=== PATIENT | female | born 2000 | race American Indian/Alaskan Native ===

== ENCOUNTER 2020-05-13 07:23 | Emergency (ER) | payer MEDICAID ==
--- NOTE | 2020-05-13 07:36 | Emergency Department Report ---
ED N/V/D HPI - General Chief complaint: Abdominal Pain Stated complaint: WEAK/2DAYS VOMIT Time Seen by Provider: 05/13/20 07:31 Source: patient Mode of arrival: Ambulatory Limitations: No Limitations - History of Present Illness Initial comments: 20-year-old -[place] female presents to the emergency room for abdominal pain, nausea vomiting body aches headaches x2 days. Patient states that she has been dealing with this intermittently for over a year. Patient reports that she has multiple ER visits for the same complaints. Patient states that she has an appointment for a GI specialist. She reports her last menstrual period was 05/08/2020. Most of her pains at the epigastric and periumbilical's. She does report urinary frequency and urinary incontinence as well as urgency. MD complaint: nausea, vomiting Onset/Timin - Related Data Previous Rx's Medication Instructions Recorded Last Taken Type Ciprofloxacin HCl [Ciprofloxacin 500 mg PO Q12HR #20 tab 11/12/19 Unknown Rx TAB] Phenazopyridine [Pyridium] 200 mg PO TID #9 tab 11/12/19 Unknown Rx Famotidine [Pepcid] 20 mg PO BID 10 Days #20 tablet 05/13/20 Unknown Rx Ondansetron [Zofran ODT TAB] 4 mg PO Q8HR #20 tab.rapdis 05/13/20 Unknown Rx Allergies Allergy/AdvReac Type Severity Reaction Status Date / Time Penicillins Allergy Rash Verified 05/13/20 09:27 ED Review of Systems ROS: Stated complaint: WEAK/2DAYS VOMIT Other details as noted in HPI Comment: All other systems reviewed and negative Constitutional: denies: chills, fever Gastrointestinal: abdominal pain, nausea, vomiting. denies: diarrhea, constip ation Genitourinary: urgency, frequency. denies: dysuria, discharge Musculoskeletal: back pain ED Past Medical Hx - Past Medical History Previous Medical History?: Yes Hx Psychiatric Treatment: Yes (depression, anxiety, bipolar) Hx Asthma: Yes - Surgical History Past Surgical History?: Yes Additional Surgical History: D&C - Social History Smoking Status: Never Smoker Substance Use Type: None - Medications Home Medications: Home Medications Medication Instructions Recorded Confirmed Last Taken Type Ciprofloxacin HCl [Ciprofloxacin 500 mg PO Q12HR #20 tab 11/12/19 Unknown Rx TAB] Phenazopyridine [Pyridium] 200 mg PO TID #9 tab 11/12/19 Unknown Rx Famotidine [Pepcid] 20 mg PO BID 10 Days #20 tablet 05/13/20 Unknown Rx Ondansetron [Zofran ODT TAB] 4 mg PO Q8HR #20 tab.rapdis 05/13/20 Unknown Rx ED Physical Exam - General Limitations: No Limitations General appearance: alert, in distress - Head Head exam: Present: atraumatic, normocephalic - Eye Eye exam: Present: normal appearance - ENT ENT exam: Present: mucous membranes dry - Neck Neck exam: Present: normal inspection, full ROM - Respiratory Respiratory exam: Present: normal lung sounds bilaterally. Absent: respiratory distress, accessory muscle use - Cardiovascular Cardiovascular Exam: Present: tachycardia - GI/Abdominal GI/Abdominal exam: Present: soft, tenderness, guarding - Extremities Exam Extremities exam: Present: normal inspection, full ROM - Back Exam Back exam: Present: normal inspection, full ROM - Neurological Exam Neurological exam: Present: alert, oriented X3, normal gait - Psychiatric Psychiatric exam: Present: normal affect, normal mood - Skin Skin exam: Present: warm, dry, intact, normal color. Absent: rash ED Course Vital Signs 05/13/20 05/13/20 05/13/20 07:35 08:40 08:46 Temperature 97.9 F Pulse Rate 120 H 83 Respiratory 16 16 20 Rate Blood Pressure 117/71 Blood Pressure 120/73 [Right] O2 Sat by Pulse 97 98 97 Oximetry 05/13/20 05/13/20 05/13/20 09:00 09:15 09:30 Temperature Pulse Rate 78 102 H 82 Respiratory 18 19 17 Rate Blood Pressure 117/71 118/71 118/71 Blood Pressure [Right] O2 Sat by Pulse 96 99 Oximetry 05/13/20 05/13/20 05/13/20 09:46 10:00 10:15 Temperature Pulse Rate 67 106 H 94 H Respiratory 18 20 21 Rate Blood Pressure 118/71 118/71 126/75 Blood Pressure [Right] O2 Sat by Pulse 99 96 97 Oximetry - Reevaluation(s) Reevaluation #1: 05/13/20 10:00 Patient reports she feels much better. We will give one more liter of fluids and discharge. ED Medical Decision Making - Lab Data Result diagrams: 05/13/20 08:08 05/13/20 08:08 - Medical Decision Making 20-year-old -[place] female presents to the emergency room for abdominal pain, nausea vomiting body aches headaches x2 days. Patient states that she has been dealing with this intermittently for over a year. Patient reports that she has multiple ER visits for the same complaints. Patient states that she has an appointment for a GI specialist. She reports her last menstrual period was 05/08/2020. Most of her pains at the epigastric and periumbilical's. She does report urinary frequency and urinary incontinence as well as urgency. Labs urine IV fluids IV Pepcid IV Zofran IV normal saline. Labs show that patient is dehydrated. Patient has had 2 L of normal saline Pepcid and Zofran. She reports she feels much better. Patient will be discharged home on Zofran Pepcid. Encouraged to follow-up with a primary care provider as well as a gravity meter observer. Critical care attestation.: If time is entered above; I have spent that time in minutes in the direct care of this critically ill patient, excluding procedure time. ED Disposition Clinical Impression: Dehydration symptoms, Chronic generalized abdominal pain, Nausea & vomiting Disposition: DC-01 TO HOME OR SELFCARE Is pt being admited?: No Does the pt Need Aspirin: No Condition: Stable Instructions: Abdominal Pain (ED) Additional Instructions: Please take medications as prescribed. Is very important for you to increase your fluid intake advance her diet as tolerated. Also you must follow-up with a gravity meter observer. Prescriptions: Famotidine [Pepcid] 20 mg PO BID 10 Days #20 tablet Ondansetron [Zofran ODT TAB] 4 mg PO Q8HR #20 tab.rapdis Referrals: PRIMARY MD EJ [Primary Care Provider] - 3-5 Days [facility] [Provider Group] - 3-5 Days DARELL MCKENNA MD [Staff Physician] - 3-5 Days Forms: Work/School Release Form(ED)
[2020-05-13] MEDS ORDERED: ONDANSETRON 4 MG/2 ML INJ IV ONE (07:44)
[2020-05-13] MEDS ORDERED: SODIUM CHLORIDE 0.9% 1000 ML 1,000 ML IV ONE ×2 (07:44→09:06)
[2020-05-13] MEDS ORDERED: FAMOTIDINE 20 MG/2 ML INJ IV ONE (07:44)
[2020-05-13 08:22] LABS: Bilirubin,Urine NEG (Negative); Blood,Urine MOD (Negative); Color,Urine Yellow (Yellow); Hyaline Casts,Urine 2 /LPF; Mucus,Urine 3+ /HPF; Urobilinogen,Urine < 2.0 mg/dL (<2.0)
[2020-05-13 08:24] LABS: Basophils # (Auto) 0.1 K/mm3 (0.0-0.1); Basophils % (Auto) 0.6 % (0.0-1.8); Hematocrit 40.1 % (30.3-42.9); Hemoglobin 13.3 gm/dl (10.1-14.3); Lymphocytes # (Auto) 0.8 K/mm3 (1.2-5.4); Lymphocytes % (Auto) 7.4 % (13.4-35.0); Mean Corpuscular HGB Conc 33 % (30-34); Mean Corpuscular Volume 77 fl (79-97); Monocytes # (Auto) 0.3 K/mm3 (0.0-0.8); Monocytes % (Auto) 2.8 % (0.0-7.3); Platelet Count 331 K/mm3 (140-440); Red Blood Count 5.21 M/mm3 (3.65-5.03); Red Cell Distribution Width 13.8 % (13.2-15.2)
[2020-05-13 08:27] LABS: Protein,Urine >500 mg/dL (Negative)
[2020-05-13 08:30] LABS: HCG Qualitative,Urine Negative (Negative)
[2020-05-13 08:41] LABS: Alanine Aminotransferase 7 units/L (7-56); Albumin 5.4 g/dL (3.9-5); Blood Urea Nitrogen 17 mg/dL (7-17); Calcium 10.4 mg/dL (8.4-10.2); Hemolysis Index 1
[2020-05-13 08:44] LABS: BUN/Creatinine Ratio 28
[2020-05-13 13:13] VITALS: BP 118/71
== END 2020-05-13 12:20 | disposition home or self-care (01) ==
LOC: ED 07:23
DX: R10.84 Generalized abdominal pain (principal); R11.2 Nausea with vomiting, unspecified; E86.0 Dehydration; F32.9 Major depressive disorder, single episode, unspecified; F41.9 Anxiety disorder, unspecified; J45.909 Unspecified asthma, uncomplicated; Z98.890 Other specified postprocedural states; Z79.2 Long term (current) use of antibiotics; Z79.899 Other long term (current) drug therapy; Z88.0 Allergy status to penicillin
CPT/HCPCS: 36415; 80053; 81001; 81025; 83690; 83735; 84702; 85025; 87086; 96361; 96374; 96375; 99283; J2405; J7030

== ENCOUNTER 2020-07-01 02:03 | Emergency (ER) | payer MEDICAID, MEDICARE ==
[2020-07-01] MEDS ORDERED: diphenhydrAMINE 50 MG/ML VIAL IV ONE (05:52)
[2020-07-01] MEDS ORDERED: METOCLOPRAMIDE 10 MG/2 ML INJ IV ONE (05:52)
[2020-07-01] MEDS ORDERED: SODIUM CHLORIDE 0.9% 1000 ML 1,000 ML IV ONE (05:52)
[2020-07-01 06:02] LABS: Basophils % (Auto) 0.3 % (0.0-1.8); Hematocrit 38.9 % (30.3-42.9); Hemoglobin 13.4 gm/dl (10.1-14.3); Lymphocytes # (Auto) 1.2 K/mm3 (1.2-5.4); Lymphocytes % (Auto) 12.4 % (13.4-35.0); Mean Corpuscular HGB Conc 34 % (30-34); Mean Corpuscular Volume 78 fl (79-97); Monocytes # (Auto) 0.3 K/mm3 (0.0-0.8); Monocytes % (Auto) 2.9 % (0.0-7.3); Platelet Count 240 K/mm3 (140-440); Red Blood Count 4.99 M/mm3 (3.65-5.03); Red Cell Distribution Width 14.3 % (13.2-15.2)
[2020-07-01 06:18] LABS: Alanine Aminotransferase 6 units/L (7-56); Albumin 5.4 g/dL (3.9-5); Blood Urea Nitrogen 13 mg/dL (7-17); Calcium 9.9 mg/dL (8.4-10.2); Hemolysis Index 6
[2020-07-01 06:26] LABS: BUN/Creatinine Ratio 19
--- NOTE | 2020-07-01 07:34 | XRay Report ---
CHEST 1 VIEW INDICATION: sob asthma COMPARISON: None FINDINGS: Support devices: None Heart: Normal Lungs/Pleura: No acute pulmonary or pleural findings. IMPRESSION: 1. No acute disease. Signer Name: Garett Laura MD Signed: 07/01/2020 7:29 AM Workstation Name: [id number]
[2020-07-01 08:27] LABS: Amorphous Crystals,Urine Few; Bilirubin,Urine NEG (Negative); Blood,Urine NEG (Negative); Color,Urine Yellow (Yellow); Mucus,Urine 3+ /HPF
[2020-07-01 08:28] LABS: HCG Qualitative,Urine Negative (Negative)
--- NOTE | 2020-07-01 08:29 | Emergency Department Report ---
ED N/V/D HPI - General Stated complaint: VOMITING, CHILLS,SHAKES, SEWATS PUI?: No Time Seen by Provider: 07/01/20 04:45 Source: patient Mode of arrival: Ambulatory Limitations: No Limitations - History of Present Illness Initial comments: Patient is a pleasant 20-year-old -[place] female that comes to the emergency room today with nausea vomiting and diarrhea. She states she is currently on her menses. She denies any abnormal vaginal discharge. She states that for 2 days she has had the nausea vomiting and diarrhea. She states that this seems to be cyclically and related to her menses. She has seen doctors in the past for but they never been able to give her a diagnosis or etiology of the problem. She has had an ovarian cyst in the past that was a simple cyst without consequence. Patient is ambulatory nontoxic [id number] on exam in ACC. MD complaint: nausea, vomiting, diarrhea -: Gradual, days(s) Description of Diarrhea: water Associated Abdominal Pain: No Improves with: none Worsens with: none, other Associated Symptoms: denies other symptoms - Related Data Previous Rx's Medication Instructions Recorded Last Taken Type Ciprofloxacin HCl [Ciprofloxacin 500 mg PO Q12HR #20 tab 11/12/19 Unknown Rx TAB] Phenazopyridine [Pyridium] 200 mg PO TID #9 tab 11/12/19 Unknown Rx Famotidine [Pepcid] 20 mg PO BID 10 Days #20 tablet 05/13/20 Unknown Rx Ondansetron [Zofran ODT TAB] 4 mg PO Q8HR #20 tab.rapdis 05/13/20 Unknown Rx Ondansetron [Zofran Odt] 4 mg PO Q8HR PRN #10 tab.rapdis 07/01/20 Unknown Rx Allergies Allergy/AdvReac Type Severity Reaction Status Date / Time Penicillins Allergy Rash Verified 05/13/20 09:27 ED Review of Systems ROS: Stated complaint: VOMITING, CHILLS,SHAKES, SEWATS Other details as noted in HPI Comment: All other systems reviewed and negative ED Past Medical Hx - Past Medical History Previous Medical History?: Yes Hx Psychiatric Treatment: Yes (depression, anxiety, bipolar) Hx Asthma: Yes Additional medical history: Ovarian cyst - Surgical History Past Surgical History?: Yes Additional Surgical History: D&C - Family History Family history: no significant - Social History Smoking Status: Never Smoker Substance Use Type: None - Medications Home Medications: Home Medications Medication Instructions Recorded Confirmed Last Taken Type Ciprofloxacin HCl [Ciprofloxacin 500 mg PO Q12HR #20 tab 11/12/19 Unknown Rx TAB] Phenazopyridine [Pyridium] 200 mg PO TID #9 tab 11/12/19 Unknown Rx Famotidine [Pepcid] 20 mg PO BID 10 Days #20 tablet 05/13/20 Unknown Rx Ondansetron [Zofran ODT TAB] 4 mg PO Q8HR #20 tab.rapdis 05/13/20 Unknown Rx Ondansetron [Zofran Odt] 4 mg PO Q8HR PRN #10 tab.rapdis 07/01/20 Unknown Rx ED Physical Exam - General General appearance: alert, in no apparent distress - Head Head exam: Present: atraumatic, normocephalic - Eye Eye exam: Present: normal appearance - ENT ENT exam: Present: mucous membranes moist - Neck Neck exam: Present: normal inspection - Respiratory Respiratory exam: Present: normal lung sounds bilaterally. Absent: respiratory distress - Cardiovascular Cardiovascular Exam: Present: regular rate, normal rhythm. Absent: systolic murmur, diastolic murmur, rubs, gallop - GI/Abdominal GI/Abdominal exam: Present: soft, normal bowel sounds - Extremities Exam Extremities exam: Present: normal inspection - Back Exam Back exam: Present: normal inspection - Neurological Exam Neurological exam: Present: alert, oriented X3 - Psychiatric Psychiatric exam: Present: normal affect, normal mood - Skin Skin exam: Present: warm, dry, intact, normal color. Absent: rash ED Medical Decision Making - Lab Data Result diagrams: 07/01/20 05:32 07/01/20 05:32 - Radiology Data Radiology results: report reviewed, image reviewed - Medical Decision Making Labs 07/01/20 07/01/20 07/01/20 05:32 05:32 08:06 WBC 10.0 RBC 4.99 Hgb 13.4 Hct 38.9 MCV 78 L MCH 27 L MCHC 34 RDW 14.3 Plt Count 240 Lymph % (Auto) 12.4 L [place] % (Auto) 2.9 Eos % (Auto) 0.0 Baso % (Auto) 0.3 Lymph # (Auto) 1.2 [place] # (Auto) 0.3 Eos # (Auto) 0.0 Baso # (Auto) 0.0 Seg Neutrophils % 84.4 H Seg Neutrophils # 8.4 H Sodium 142 Potassium 3.9 Chloride 103.6 Carbon Dioxide 24 Anion Gap 18 BUN 13 Creatinine 0.7 Estimated GFR > 60 BUN/Creatinine Ratio 19 Glucose 140 H Calcium 9.9 Total Bilirubin 0.70 AST 20 ALT 6 L Alkaline Phosphatase 63 Total Protein 8.6 H Albumin 5.4 H Albumin/Globulin Ratio 1.7 Lipase 16 Urine Color Yellow Urine Turbidity Cloudy Urine pH 5.0 Ur Specific [place] 1.028 Urine Protein 30 mg/dl Urine Glucose (UA) Neg Urine Ketones 20 Urine Blood Neg Urine Nitrite Neg Urine Bilirubin Neg Urine Urobilinogen 2.0 Ur Leukocyte Esterase Neg Urine WBC (Auto) 3.0 Urine RBC (Auto) 1.0 U Epithel Cells (Auto) 7.0 Amorphous Crystals Few Urine Mucus 3+ Urine HCG, Qual Negative At the time of ACC exam patient had been in the ER for about 4 hours and has had no further nausea vomiting and diarrhea. She was medicated body overnight a PPD. Vital signs are normal as documented manually by the nurse On reexam patient is ambulatory nontoxic and [id number]. She is taking p.o. Her abdomen is soft nontender. She has no CVA tenderness. She has no dysuria. She is not concerned for STI and has no vaginal discharge. UA is negative for or infection. Patient did have 20 ketones. She is taking p.o. Labs noted. Patient denies eating any bad food. She denies being around anybody that is been ill. She has no right upper quadrant tenderness. Patient being discharged home with discharge plan of care including a bland diet today. She is been given Zofran as needed. I have also given her referral to local PCP, GI doctor and MARKETING PROFESSIONAL for follow-up should she need it. Patient verbalizes understanding of discharge plan of care - Differential Diagnosis RO PREG/UTI/GASTROENTERITIS Critical care attestation.: If time is entered above; I have spent that time in minutes in the direct care of this critically ill patient, excluding procedure time. ED Disposition Clinical Impression: Gastroenteritis Disposition: DC-01 TO HOME OR SELFCARE Is pt being admited?: No Does the pt Need Aspirin: No Condition: Stable Additional Instructions: BLAND DIET TODAY ADVANCE TOLERATED ZOFRAN FOR NAUSEA DRINK A LOT OF WATER REFERRALS BELOW WE DISCUSSED Prescriptions: Ondansetron [Zofran Odt] 4 mg PO Q8HR PRN #10 tab.rapdis PRN Reason: Vomiting Referrals: DARELL MCKENNA MD [Staff Physician] - 3-5 Days JOESPH HURLEY MD [Staff Physician] - 3-5 Days ANAMARIA JERONIMO MD [Staff Physician] - 3-5 Days Time of Disposition: 08:33
[2020-07-01 09:07] VITALS: BP 112/82
== END 2020-07-01 09:07 | disposition home or self-care (01) ==
LOC: ED 02:03
DX: K52.9 Noninfective gastroenteritis and colitis, unspecified (principal); F32.9 Major depressive disorder, single episode, unspecified; F41.9 Anxiety disorder, unspecified; Z98.890 Other specified postprocedural states; Z79.2 Long term (current) use of antibiotics; Z79.899 Other long term (current) drug therapy; Z88.0 Allergy status to penicillin
CPT/HCPCS: 36415; 71045; 80053; 81001; 81025; 83690; 85025; 96361; 96374; 96375; 99284; J1200; J2765; J7030

== ENCOUNTER 2020-07-03 02:07 | Emergency (ER) | payer MEDICAID, MEDICARE ==
--- NOTE | 2020-07-03 06:21 | Event Note ---
ED Screening Note Date of service: 07/03/20 Time: 06:17 ED Screening Note: 20-year-old -[place] female who I have had the pleasure of seeing back in May presents to the emergency room for nausea vomiting and abdominal pain. Patient reports that she was seen here on the for the same complaint. Patient reports that she she has an appointment with her [facility]IC[facility]OG[facility] today. She reports that she started her menstrual period on 07/01/2020. She states that the Zofran that was prescribed to her does not help. She last vomited about an hour ago. Patient points to her left lower quadrant where her pain is. Patient has been seen here several times without any imaging. I will order a CT with contrast for abdominal and pelvic pain and tenderness. Patient was examined by me and has left lower quadrant tenderness. This initial assessment/diagnostic orders/clinical plan/treatment(s) is/are subject to change based on patients health status, clinical progression and re- assessment by fellow clinical providers in the ED. Further treatment and workup at subsequent clinical providers discretion. Patient/guardian urged not to elope from the ED as their condition may be serious if not clinically assessed and managed. Initial orders include:
[2020-07-03 06:23] VITALS: BP 117/86
[2020-07-03 07:00] LABS: Bilirubin,Urine NEG (Negative); Blood,Urine LG (Negative); Color,Urine Yellow (Yellow); HCG Qualitative,Urine Negative (Negative); Mucus,Urine 3+ /HPF
--- NOTE | 2020-07-03 08:29 | Cat Scan Report ---
CT ABDOMEN AND PELVIS WITH CONTRAST HISTORY: MAIN. Left lower quadrant pain COMPARISON: None. TECHNIQUE: CT images of the abdomen and pelvis were obtained following administration of intravenous contrast. All CT scans at this location are performed using CT dose reduction for ALARA by means of automated exposure control. CONTRAST: 100 ml of intravenous contrast administered. FINDINGS: Lungs/bones: Lung bases are clear Abdomen/pelvis: The liver, spleen, adrenal glands, pancreas, gallbladder and upper GI tract appear n ormal. Bilateral kidneys appear normal. There is fluid within the endometrium. No significant free fl uid is seen in the pelvis. No acute bone findings are seen.. Appendix is not definitely seen. No infl ammatory changes seen within the colon. No evidence for bowel obstruction. IMPRESSION: No acute findings are seen. No focal inflammatory change is identified. Signer Name: Lonnie Ann MD Signed: 07/03/2020 8:25 AM Workstation Name: [id number]
[2020-07-03] MEDS ORDERED: KETOROLAC 30 MG/1 ML INJ IV STA (09:12)
[2020-07-03] MEDS ORDERED: ONDANSETRON 4 MG/2 ML INJ IV STA (09:12)
--- NOTE | 2020-07-03 09:32 | Emergency Department Report ---
ED Abdominal Pain HPI - General Chief Complaint: Abdominal Pain Stated Complaint: VOMITING Time Seen by Provider: 07/03/20 09:09 Source: patient Mode of arrival: Ambulatory Limitations: No Limitations - History of Present Illness Initial Comments: 20-year-old -Niuean female presents emerged department complaining of a several week history of abdominal pain which she has been having it evaluated [place] No urgent or emergent conditions have have been discovered despite several CT scans and ultrasounds although she continues to have pain to the left lower quadrant and radiates through to her left flank and suprapubic region. She reports no vaginal bleeding, no vaginal discharge, no hematuria, wound, no no dysuria, no fever, chills, sweats. MD Complaint: abdominal pain -: week(s) Location: LLQ, suprapubic Radiation: none Migration to: no migration Severity scale (0 -10): 0 Consistency: constant Improves With: nothing Associated Symptoms: nausea, vomiting. denies: chills, constipation, dysuria, melena, hematuria, anorexia - Related Data Previous Rx's Medication Instructions Recorded Last Taken Type Ciprofloxacin HCl [Ciprofloxacin 500 mg PO Q12HR #20 tab 11/12/19 Unknown Rx TAB] Phenazopyridine [Pyridium] 200 mg PO TID #9 tab 11/12/19 Unknown Rx Famotidine [Pepcid] 20 mg PO BID 10 Days #20 tablet 05/13/20 Unknown Rx Ondansetron [Zofran ODT TAB] 4 mg PO Q8HR #20 tab.rapdis 05/13/20 Unknown Rx Ondansetron [Zofran Odt] 4 mg PO Q8HR PRN #10 tab.rapdis 07/01/20 Unknown Rx Hyoscyamine Subl [Levsin Sl 0.125 0.125 mg SL Q6HR PRN #20 tab 07/03/20 Unknown Rx TAB] Ondansetron [Zofran ODT TAB] 8 mg PO Q12HR #14 tab.rapdis 07/03/20 Unknown Rx Allergies Allergy/AdvReac Type Severity Reaction Status Date / Time Penicillins Allergy Rash Verified 05/13/20 09:27 ED Review of Systems ROS: Stated complaint: VOMITING Other details as noted in HPI Comment: All other systems reviewed and negative ED Past Medical Hx - Past Medical History Previous Medical History?: Yes Hx Psychiatric Treatment: Yes (depression, anxiety, bipolar) Hx Asthma: Yes Additional medical history: Ovarian cyst - Surgical History Past Surgical History?: Yes Additional Surgical History: D&C - Social History Smoking Status: Never Smoker Substance Use Type: None - Medications Home Medications: Home Medications Medication Instructions Recorded Confirmed Last Taken Type Ciprofloxacin HCl [Ciprofloxacin 500 mg PO Q12HR #20 tab 11/12/19 Unknown Rx TAB] Phenazopyridine [Pyridium] 200 mg PO TID #9 tab 11/12/19 Unknown Rx Famotidine [Pepcid] 20 mg PO BID 10 Days #20 tablet 05/13/20 Unknown Rx Ondansetron [Zofran ODT TAB] 4 mg PO Q8HR #20 tab.rapdis 05/13/20 Unknown Rx Ondansetron [Zofran Odt] 4 mg PO Q8HR PRN #10 tab.rapdis 07/01/20 Unknown Rx Hyoscyamine Subl [Levsin Sl 0.125 0.125 mg SL Q6HR PRN #20 tab 07/03/20 Unknown Rx TAB] Ondansetron [Zofran ODT TAB] 8 mg PO Q12HR #14 tab.rapdis 07/03/20 Unknown Rx ED Physical Exam - General Limitations: No Limitations General appearance: alert, in no apparent distress - Head Head exam: Present: atraumatic, normocephalic - Eye Eye exam: Present: normal appearance, PERRL Pupils: Present: normal accommodation - ENT ENT exam: Present: normal exam, normal orophraynx, mucous membranes moist - Neck Neck exam: Present: normal inspection, tenderness, meningismus, full ROM - Respiratory Respiratory exam: Present: normal lung sounds bilaterally. Absent: respiratory distress, wheezes, rales, rhonchi, chest wall tenderness - Cardiovascular Cardiovascular Exam: Present: regular rate, normal rhythm. Absent: systolic murmur, diastolic murmur, rubs, gallop - GI/Abdominal GI/Abdominal exam: Present: soft, tenderness (Tenderness to the left lower quadrant. No Hernandez sign, no Rovsing sign, no Reeder Harmon, no Michel sign), normal bowel sounds. Absent: rebound, rigid - Extremities Exam Extremities exam: Present: normal inspection - Back Exam Back exam: Present: normal inspection, CVA tenderness (L) (With light percuss ion). Absent: paraspinal tenderness, vertebral tenderness - Neurological Exam Neurological exam: Present: alert, oriented X3, CN II-XII intact, normal gait - Psychiatric Psychiatric exam: Present: normal affect, normal mood. Absent: anxious, flat affect, manic, homicidal ideation - Skin Skin exam: Present: warm, dry, intact, normal color. Absent: rash ED Course Vital Signs 07/03/20 07/03/20 07/03/20 02:29 06:22 07:17 Temperature 98.0 F 98.9 F Pulse Rate 114 H 74 Respiratory 18 16 14 Rate Blood Pressure 120/84 Blood Pressure 117/86 [Right] O2 Sat by Pulse 97 97 Oximetry 07/03/20 10:24 Temperature Pulse Rate Respiratory 18 Rate Blood Pressure Blood Pressure [Right] O2 Sat by Pulse Oximetry ED Medical Decision Making - Lab Data Result diagrams: 07/03/20 10:01 07/03/20 09:58 Lab Results 07/03/20 07/03/20 07/03/20 Range/Units 09:58 10:01 Unknown WBC 8.8 (4.5-11.0) K/mm3 RBC 4.63 (3.65-5.03) M/mm3 Hgb 12.2 (10.1-14.3) gm/dl Hct 36.5 (30.3-42.9) % MCV 79 (79-97) fl MCH 26 L (28-32) pg MCHC 34 (30-34) % RDW 14.0 (13.2-15.2) % Plt Count 254 (140-440) K/mm3 Lymph % (Auto) 29.5 (13.4-35.0) % Perry % (Auto) 6.2 (0.0-7.3) % Eos % (Auto) 0.0 (0.0-4.3) % Baso % (Auto) 0.1 (0.0-1.8) % Lymph # (Auto) 2.6 (1.2-5.4) K/mm3 Perry # (Auto) 0.5 (0.0-0.8) K/mm3 Eos # (Auto) 0.0 (0.0-0.4) K/mm3 Baso # (Auto) 0.0 (0.0-0.1) K/mm3 Seg Neutrophils % 64.2 (40.0-70.0) % Seg Neutrophils # 5.7 (1.8-7.7) K/mm3 Sodium 138 (137-145) mmol/L Potassium 3.5 L (3.6-5.0) mmol/L Chloride 102.6 (98-107) mmol/L Carbon Dioxide 20 L (22-30) mmol/L Anion Gap 19 mmol/L BUN 13 (7-17) mg/dL Creatinine 0.6 (0.6-1.2) mg/dL Estimated GFR > 60 ml/min BUN/Creatinine Ratio 22 % Glucose 110 H (65-100) mg/dL Calcium 9.7 (8.4-10.2) mg/dL Total Bilirubin 0.60 (0.1-1.2) mg/dL AST 17 (5-40) units/L ALT 6 L (7-56) units/L Alkaline Phosphatase 58 (35-129) units/L Total Protein 7.8 (6.3-8.2) g/dL Albumin 4.9 (3.9-5) g/dL Albumin/Globulin Ratio 1.7 % Lipase 20 (13-60) units/L Urine Color Yellow (Yellow) Urine Turbidity Clear (Clear) Urine pH 5.0 (5.0-7.0) Ur Specific [place] 1.036 H (1.003-1.030) Urine Protein 100 mg/dl (Negative) mg/dL Urine Glucose (UA) Neg (Negative) mg/dL Urine Ketones 80 (Negative) mg/dL Urine Blood Lg (Negative) Urine Nitrite Neg (Negative) Urine Bilirubin Neg (Negative) Urine Urobilinogen 4.0 (<2.0) mg/dL Ur Leukocyte Esterase Neg (Negative) Urine WBC (Auto) 2.0 (0.0-6.0) /HPF Urine RBC (Auto) 2.0 (0.0-6.0) /HPF U Epithel Cells (Auto) 5.0 (0-13.0) /HPF Urine Mucus 3+ /HPF Urine HCG, Qual (Negative) 07/03/20 Range/Units Unknown WBC (4.5-11.0) K/mm3 RBC (3.65-5.03) M/mm3 Hgb (10.1-14.3) gm/dl Hct (30.3-42.9) % MCV (79-97) fl MCH (28-32) pg MCHC (30-34) % RDW (13.2-15.2) % Plt Count (140-440) K/mm3 Lymph % (Auto) (13.4-35.0) % Perry % (Auto) (0.0-7.3) % Eos % (Auto) (0.0-4.3) % Baso % (Auto) (0.0-1.8) % Lymph # (Auto) (1.2-5.4) K/mm3 Perry # (Auto) (0.0-0.8) K/mm3 Eos # (Auto) (0.0-0.4) K/mm3 Baso # (Auto) (0.0-0.1) K/mm3 Seg Neutrophils % (40.0-70.0) % Seg Neutrophils # (1.8-7.7) K/mm3 Sodium (137-145) mmol/L Potassium (3.6-5.0) mmol/L Chloride (98-107) mmol/L Carbon Dioxide (22-30) mmol/L Anion Gap mmol/L BUN (7-17) mg/dL Creatinine (0.6-1.2) mg/dL Estimated GFR ml/min BUN/Creatinine Ratio % Glucose (65-100) mg/dL Calcium (8.4-10.2) mg/dL Total Bilirubin (0.1-1.2) mg/dL AST (5-40) units/L ALT (7-56) units/L Alkaline Phosphatase (35-129) units/L Total Protein (6.3-8.2) g/dL Albumin (3.9-5) g/dL Albumin/Globulin Ratio % Lipase (13-60) units/L Urine Color (Yellow) Urine Turbidity (Clear) Urine pH (5.0-7.0) Ur Specific [place] (1.003-1.030) Urine Protein (Negative) mg/dL Urine Glucose (UA) (Negative) mg/dL Urine Ketones (Negative) mg/dL Urine Blood (Negative) Urine Nitrite (Negative) Urine Bilirubin (Negative) Urine Urobilinogen (<2.0) mg/dL Ur Leukocyte Esterase (Negative) Urine WBC (Auto) (0.0-6.0) /HPF Urine RBC (Auto) (0.0-6.0) /HPF U Epithel Cells (Auto) (0-13.0) /HPF Urine Mucus /HPF Urine HCG, Qual Negative (Negative) - Radiology Data Radiology results: report reviewed [address] [place] [id number] Ultrasound Report Signed Patient: J LUIS CALERO MR#: [id number] : 2000 Acct:[id number] Age/Sex: 20 / F ADM Date: 07/03/20 Loc: ED Attending Dr: Ordering Physician: ZORA MCNAIR Date of Service: 07/03/20 Procedure(s): US transvaginal Accession Number(s): [id number] cc: ZORA MCNAIR Pelvic Ultrasound HISTORY: Left adnexa pain. TECHNIQUE: Grayscale and color imaging performed. COMPARISON: CT abdomen/pelvis from today FINDINGS: Transabdominal and endovaginal imaging was performed. Uterus measures 6.8 x 3.1 x 4.0 cm with endometrial echocomplex measuring 5 mm. Both ovaries are normal in size with small follicles on the right with a 1.4 cm mildly complex cyst in the left which is most likely functional. No appreciable pelvic free fluid. IMPRESSION: 1. No acute abnormality identified. 2. Small probable functional cyst in the left ovary. Signer Name: Chris Piper MD Signed: 07/03/2020 10:01 AM Workstation Name: [id number] Transcribed By: JW Dictated By: Chris Piper MD Electronically Authenticated By: Chris Piper MD Signed Date/Time: 07/03/20 1001 DD/ 0958 TD/TT: [address] [place] [id number] Ultrasound Report Signed Patient: J LUIS CALERO MR#: [id number] : 2000 Acct:[id number] Age/Sex: 20 / F ADM Date: 07/03/20 Loc: ED Attending Dr: Ordering Physician: ZORA MCNAIR Date of Service: 07/03/20 Procedure(s): US pelvic limited Accession Number(s): [id number] cc: ZORA MCNAIR Pelvic Ultrasound HISTORY: Left adnexa pain. TECHNIQUE: Grayscale and color imaging performed. COMPARISON: CT abdomen/pelvis from today FINDINGS: Transabdominal and endovaginal imaging was performed. Uterus measures 6.8 x 3.1 x 4.0 cm with endometrial echocomplex measuring 5 mm. Both ovaries are normal in size with small follicles on the right with a 1.4 cm mildly complex cyst in the left which is most likely functional. No appreciable pelvic free fluid. IMPRESSION: 1. No acute abnormality identified. 2. Small probable functional cyst in the left ovary. Signer Name: Chris Piper MD Signed: 07/03/2020 10:01 AM Workstation Name: [id number] Transcribed By: JW Dictated By: Chris Piper MD Electronically Authenticated By: Chris Piper MD Signed Date/Time: 07/03/20 1001 DD/ 0958 TD/TT: - Medical Decision Making This patient presents with abdominal pain of unclear etiology. A CT scan was performed to evaluate for potential causes of the abdominal pain, however, neither the clinical exam nor the CT has identified an emergent etiology for the abdominal pain. Specifically, given the benign exam, the laboratory studies, and unremarkable CT, I have a very low suspicion for appendicitis, ischemic bowel, bowel perforation, or any other life threatening disease. I have discussed with the patient the level of uncertainty with undifferentiated abdominal pain and clearly explained the need to follow-up as noted on the discharge instructions, or return to the Emergency Department immediately if the pain worsens, develops fever, persistent and uncontrollable vomiting, or for any new symptoms or concerns. Nausea was treated with Zofran which slowed some mild improvement with follow-up with Reglan with Benadryl. Patient states she has been taking Zofran for the last several months is due to follow-up with [facility] Appointment scheduled for today but missed it due to being in the emergency room and states she does have a follow-up appointment with GI. She was advised to maintain her gastroenterology appointment for further evaluation of this chronic abdominal pain associated with nausea and some episodes of vomiting. Critical care attestation.: If time is entered above; I have spent that time in minutes in the direct care of this critically ill patient, excluding procedure time. ED Disposition Clinical Impression: Abdominal pain, Nausea & vomiting Disposition: DC- TO HOME OR SELFCARE Is pt being admited?: No Does the pt Need Aspirin: No Condition: Stable Instructions: Abdominal Pain, Adult, Nausea and Vomiting, Adult, Abdominal Pain (ED) Additional Instructions: Please keep your appointment with gastroenterology as also keep your appointment with your FORENSIC ACCOUNTANT although it may need to be rescheduled due to missing appointment today. Prescriptions: Hyoscyamine Subl [Levsin Sl 0.125 TAB] 0.125 mg SL Q6HR PRN #20 tab PRN Reason: abd pain Ondansetron [Zofran ODT TAB] 8 mg PO Q12HR #14 tab.rapdis [facility]: [facility] TIERA [Primary Care Provider] - 3-5 Days [facility] [Provider Group] - 3-5 Days
--- NOTE | 2020-07-03 10:05 | Ultrasound Report ---
Pelvic Ultrasound HISTORY: Left adnexa pain. TECHNIQUE: Grayscale and color imaging performed. COMPARISON: CT abdomen/pelvis from today FINDINGS: Transabdominal and endovaginal imaging was performed. Uterus measures 6.8 x 3.1 x 4.0 cm with endometrial echocomplex measuring 5 mm. Both ovaries are normal in size with small follicles on the right with a 1.4 cm mildly complex cyst i n the left which is most likely functional. No appreciable pelvic free fluid. IMPRESSION: 1. No acute abnormality identified. 2. Small probable functional cyst in the left ovary. Signer Name: Chris Piper MD Signed: 07/03/2020 10:01 AM Workstation Name: [id number]
[2020-07-03 10:35] LABS: Basophils % (Auto) 0.1 % (0.0-1.8); Hematocrit 36.5 % (30.3-42.9); Hemoglobin 12.2 gm/dl (10.1-14.3); Lymphocytes # (Auto) 2.6 K/mm3 (1.2-5.4); Lymphocytes % (Auto) 29.5 % (13.4-35.0); Mean Corpuscular HGB Conc 34 % (30-34); Mean Corpuscular Volume 79 fl (79-97); Monocytes # (Auto) 0.5 K/mm3 (0.0-0.8); Monocytes % (Auto) 6.2 % (0.0-7.3); Platelet Count 254 K/mm3 (140-440); Red Blood Count 4.63 M/mm3 (3.65-5.03)
[2020-07-03 10:40] LABS: Alanine Aminotransferase 6 units/L (7-56); Albumin 4.9 g/dL (3.9-5); Blood Urea Nitrogen 13 mg/dL (7-17); Calcium 9.7 mg/dL (8.4-10.2); Hemolysis Index 6
[2020-07-03 10:52] LABS: BUN/Creatinine Ratio 22
[2020-07-03] MEDS ORDERED: METOCLOPRAMIDE 10 MG/2 ML INJ IV STA (10:54)
[2020-07-03] MEDS ORDERED: diphenhydrAMINE 50 MG/ML VIAL IV STA (10:54)
== END 2020-07-03 12:42 | disposition home or self-care (01) ==
LOC: ED 02:07
DX: R10.32 Left lower quadrant pain (principal); R10.2 Pelvic and perineal pain; R11.2 Nausea with vomiting, unspecified; F32.9 Major depressive disorder, single episode, unspecified; J45.909 Unspecified asthma, uncomplicated; Z98.890 Other specified postprocedural states; Z79.2 Long term (current) use of antibiotics; Z79.899 Other long term (current) drug therapy; Z88.0 Allergy status to penicillin
CPT/HCPCS: 36415; 74177; 76830; 76857; 80053; 81001; 81025; 83690; 85025; 96374; 96375; 99284; J1200; J1885; J2405; J2765; Q9967

== ENCOUNTER 2020-07-19 02:27 | Emergency (ER) | payer MEDICAID, MEDICARE ==
[2020-07-19] MEDS ORDERED: SODIUM CHLORIDE 0.9% 1000 ML 1,000 ML IV ONE (07:49)
[2020-07-19] MEDS ORDERED: HYOSCYAMINE SUBL 0.125 MG TAB SL ONE (07:50)
[2020-07-19] MEDS ORDERED: METOCLOPRAMIDE 10 MG/2 ML INJ IV ONE (07:50)
--- NOTE | 2020-07-19 07:54 | Emergency Department Report ---
ED Abdominal Pain HPI - General Chief Complaint: Nausea/Vomiting/Diarrhea Stated Complaint: SEVERE VOMITTING Time Seen by Provider: 07/19/20 07:31 Source: patient Mode of arrival: Ambulatory Limitations: No Limitations - History of Present Illness Initial Comments: 20-year-old Pleasant -[place] female who I had the pleasure of seeing this month presents back to the emergency room for abdominal pain with nausea and vomiting. Patient reports that the Zofran is not helping with the Levsin that was given to her by prior provider helped a lot. Patient states that she has a GI appointment on 08/05/2020 with [facility], Dr. Ward. She still complains of lower abdominal tenderness. Patient denies any fever no chills no diarrhea. She does admit to smoking weed. Patient has had a CT abdomen which was unremarkable, ultrasound done just shows probable functionable ovarian cyst with no other abnormalities. Patient missed her appointment with [facility]. MD Complaint: abdominal pain - Related Data Previous Rx's Medication Instructions Recorded Last Taken Type Ciprofloxacin HCl [Ciprofloxacin 500 mg PO Q12HR #20 tab 11/12/19 Unknown Rx TAB] Phenazopyridine [Pyridium] 200 mg PO TID #9 tab 11/12/19 Unknown Rx Ondansetron [Zofran ODT TAB] 4 mg PO Q8HR #20 tab.rapdis 05/13/20 Unknown Rx Ondansetron [Zofran Odt] 4 mg PO Q8HR PRN #10 tab.rapdis 07/01/20 Unknown Rx Ondansetron [Zofran ODT TAB] 8 mg PO Q12HR #14 tab.rapdis 07/03/20 Unknown Rx Famotidine [Pepcid] 20 mg PO BID 10 Days #20 tablet 07/19/20 Unknown Rx Hyoscyamine Subl [Levsin Sl 0.125 0.125 mg SL Q6HR PRN #40 tab 07/19/20 Unknown Rx TAB] Promethazine [Phenergan] 25 mg PO Q8HR PRN #15 tab 07/19/20 Unknown Rx Allergies Allergy/AdvReac Type Severity Reaction Status Date / Time Penicillins Allergy Rash Verified 05/13/20 09:27 ED Review of Systems ROS: Stated complaint: SEVERE VOMITTING Other details as noted in HPI ED Past Medical Hx - Past Medical History Hx Psychiatric Treatment: Yes (depression, anxiety, bipolar) Hx Asthma: Yes Additional medical history: Ovarian cyst - Surgical History Additional Surgical History: D&C - Social History Smoking Status: Never Smoker Substance Use Type: Alcohol, Marijuana - Medications Home Medications: Home Medications Medication Instructions Recorded Confirmed Last Taken Type Ciprofloxacin HCl [Ciprofloxacin 500 mg PO Q12HR #20 tab 11/12/19 Unknown Rx TAB] Phenazopyridine [Pyridium] 200 mg PO TID #9 tab 11/12/19 Unknown Rx Ondansetron [Zofran ODT TAB] 4 mg PO Q8HR #20 tab.rapdis 05/13/20 Unknown Rx Ondansetron [Zofran Odt] 4 mg PO Q8HR PRN #10 tab.rapdis 07/01/20 Unknown Rx Ondansetron [Zofran ODT TAB] 8 mg PO Q12HR #14 tab.rapdis 07/03/20 Unknown Rx Famotidine [Pepcid] 20 mg PO BID 10 Days #20 tablet 07/19/20 Unknown Rx Hyoscyamine Subl [Levsin Sl 0.125 0.125 mg SL Q6HR PRN #40 tab 07/19/20 Unknown Rx TAB] Promethazine [Phenergan] 25 mg PO Q8HR PRN #15 tab 07/19/20 Unknown Rx ED Physical Exam - General Limitations: No Limitations General appearance: alert, in no apparent distress - Head Head exam: Present: atraumatic, normocephalic - Eye Eye exam: Present: normal appearance - ENT ENT exam: Present: mucous membranes moist - Neck Neck exam: Present: normal inspection, full ROM - Respiratory Respiratory exam: Present: normal lung sounds bilaterally. Absent: respiratory distress, accessory muscle use - Cardiovascular Cardiovascular Exam: Present: tachycardia - GI/Abdominal GI/Abdominal exam: Present: soft, tenderness (Lower abdominal), guarding (Lower abdominal). Absent: distended - Extremities Exam Extremities exam: Present: normal inspection, full ROM - Back Exam Back exam: Present: normal inspection, full ROM - Neurological Exam Neurological exam: Present: alert, oriented X3, normal gait - Psychiatric Psychiatric exam: Present: normal affect, normal mood - Skin Skin exam: Present: warm, dry, intact, normal color. Absent: rash ED Course Vital Signs 07/19/20 07/19/20 07/19/20 02:33 08:17 08:24 Temperature 98.0 F Pulse Rate 128 H 93 H Respiratory 18 18 23 Rate Blood Pressure 132/79 O2 Sat by Pulse 98 98 99 Oximetry ED Medical Decision Making - Lab Data Result diagrams: 07/19/20 08:24 07/19/20 08:22 - Medical Decision Making 20-year-old Pleasant -[place] female who I had the pleasure of seeing this month presents back to the emergency room for abdominal pain with nausea and vomiting. Patient reports that the Zofran is not helping with the Levsin that was given to her by prior provider helped a lot. Patient states that she has a GI appointment on 08/05/2020 with [facility], Dr. Ward. She still complains of lower abdominal tenderness. Patient denies any fever no chills no diarrhea. She does admit to smoking weed. Patient has had a CT abdomen which was unremarkable, ultrasound done just shows probable functionable ovarian cyst with no other abnormalities. Patient missed her appointment with [facility]GI[facility] MANAGER. I believe that her chronic abdominal pain and nausea of vomiting is most likely due to hyper emesis cannabis. Initial labs have been ordered IV fluid and Reglan as well as Levsin has been ordered. UDS and urinalysis has been ordered and sent. Critical care attestation.: If time is entered above; I have spent that time in minutes in the direct care of this critically ill patient, excluding procedure time. ED Disposition Clinical Impression: Chronic abdominal pain, Nausea and vomiting Disposition: DC-01 TO HOME OR SELFCARE Is pt being admited?: No Does the pt Need Aspirin: No Condition: Stable Instructions: Pain Without a Known Cause, Nausea and Vomiting, Adult, [id number], Abdominal Pain, Adult, [id number] Additional Instructions: Please take medication as prescribed and as needed. Follow-up with your rheumatology nurse and make an appointment with your INDUSTRIAL HYGIENE MANAGER. Prescriptions: Hyoscyamine Subl [Levsin Sl 0.125 TAB] 0.125 mg SL Q6HR PRN #40 tab PRN Reason: abd pain Famotidine [Pepcid] 20 mg PO BID 10 Days #20 tablet Promethazine [Phenergan] 25 mg PO Q8HR PRN #15 tab PRN Reason: Nausea Referrals: PRIMARY CARE, [Primary Care Provider] - 3-5 Days [facility] [Provider Group] - 3-5 Days [facility] [Provider Group] - 3-5 Days [facility] [Provider Group] - 3-5 Days [facility] [Provider Group] - 3-5 Days
[2020-07-19 08:09] LABS: Bilirubin,Urine NEG (Negative); Blood,Urine NEG (Negative); Color,Urine Yellow (Yellow); Mucus,Urine 3+ /HPF; Urobilinogen,Urine < 2.0 mg/dL (<2.0)
[2020-07-19 08:12] LABS: Amphetamine Screen,Urine Negative; Benzodiazepines Screen,Urine Negative; Cannabinoid Screen,Urine Negative; Cocaine Screen,Urine Negative; Methadone Screen,Urine Negative; Opiate Screen,Urine Negative
[2020-07-19 08:53] LABS: Basophils % (Auto) 0.3 % (0.0-1.8); Hematocrit 38.3 % (30.3-42.9); Hemoglobin 12.8 gm/dl (10.1-14.3); Mean Corpuscular HGB Conc 33 % (30-34); Mean Corpuscular Volume 78 fl (79-97); Monocytes # (Auto) 0.4 K/mm3 (0.0-0.8); Monocytes % (Auto) 3.4 % (0.0-7.3); Platelet Count 290 K/mm3 (140-440); Red Blood Count 4.88 M/mm3 (3.65-5.03); Red Cell Distribution Width 14.4 % (13.2-15.2)
[2020-07-19 08:59] LABS: Protein,Urine >500 mg/dL (Negative)
[2020-07-19 09:02] LABS: HCG Qualitative,Urine Negative (Negative)
[2020-07-19 09:06] LABS: Alanine Aminotransferase 7 units/L (7-56); Albumin 4.9 g/dL (3.9-5); BUN/Creatinine Ratio 24; Blood Urea Nitrogen 19 mg/dL (7-17); Calcium 9.7 mg/dL (8.4-10.2); Hemolysis Index 5
[2020-07-19 10:23] VITALS: BP 117/76
== END 2020-07-19 10:28 | disposition home or self-care (01) ==
LOC: ED 07:12
DX: R10.30 Lower abdominal pain, unspecified (principal); R11.2 Nausea with vomiting, unspecified; F41.9 Anxiety disorder, unspecified; F32.9 Major depressive disorder, single episode, unspecified; J45.909 Unspecified asthma, uncomplicated; F12.10 Cannabis abuse, uncomplicated; Z98.890 Other specified postprocedural states; Z79.2 Long term (current) use of antibiotics; Z79.899 Other long term (current) drug therapy; Z88.0 Allergy status to penicillin
CPT/HCPCS: 36415; 80053; 80307; 81001; 81025; 83690; 85025; 96361; 96374; 99283; J2765; J7030